=== PATIENT | female | born 1955 | race Caucasian/White ===

== ENCOUNTER → 2018-02-02 | Outpatient (CLI) | payer OTHER ==
[~2018-02-02] MED LIST: ALBU90OI61 INH; Adult Low Dose81 MG PO; BUDE10.22; BUDE6HFA; CARV6.25; CARV6.25 PO; FLUSAL1005 INH; LISI5 PO; LOVA40 PO; MECL25 PO; VITAMIN D31000 UNIT PO
== END | disposition home or self-care (01) ==
LOC: LAB SHORT 14:40 → LAB 14:40
PROVIDERS: Family Medicine
DX: Z12.4 Encounter for screening for malignant neoplasm of cervix (principal); Z11.51 Encounter for screening for human papillomavirus (HPV)
CPT/HCPCS: G0145

== ENCOUNTER 2020-07-24 11:45 | Day surgery (SDC) | payer OTHER ==
[~2020-07-24] VITALS: Ht 165.1 cm; Wt 81.7 kg
[~2020-07-24 11:45] MED LIST changes: +ATOR80; +ONDA4ODT MM; +Protonix40 MG PO
== END 2020-07-24 14:14 | disposition home or self-care (01) ==
LOC: ORSCSDS 11:45
PROVIDERS: Surgery
PROC: 0DJD8ZZ Inspection of Lower Intestinal Tract, Via Natural or Artificial Opening Endoscopic (ICD-10-PCS; principal; 2020-07-24 13:30)
DX: K92.1 Melena (principal); Z86.010 Personal history of colon polyps; Z83.71 Family history of colonic polyps; K57.30 Diverticulosis of large intestine without perforation or abscess without bleeding; K64.8 Other hemorrhoids; J45.909 Unspecified asthma, uncomplicated; I12.9 Hypertensive chronic kidney disease with stage 1 through stage 4 chronic kidney disease, or unspecified chronic kidney disease; E11.22 Type 2 diabetes mellitus with diabetic chronic kidney disease; N18.2 Chronic kidney disease, stage 2 (mild); Z79.82 Long term (current) use of aspirin; Z79.899 Other long term (current) drug therapy
CPT/HCPCS: 82947; J2704; J7120

== ENCOUNTER 2021-03-31 12:47 | Inpatient (IN) | payer OTHER ==
[~2021-03-31] VITALS: Ht 165.1 cm; Wt 89.4 kg
[~2021-03-31 12:47] MED LIST changes: +ASPIR 8181 MG PO; -ATOR80; +ATOR80 PO; -Adult Low Dose81 MG PO
[2021-03-31] MEDS ORDERED: IPRAT-ALBUT 0.5-3 ML INH (13:02)
[2021-03-31] MEDS ORDERED: KLOR-CON 1010 ME2 PO (13:03)
[2021-03-31] MEDS ORDERED: LISI5 PO (14:49)
[2021-03-31] MEDS ORDERED: CARVEDILOL12.5 MG PO (14:49)
[2021-03-31 15:14] LABS: BASOPHILS ABSOLUTE AUTO 0.02 K/mm3 (0.00-0.23); BASOPHILS PERCENT AUTO 0 % (0-2); EOSINOPHILS ABSOLUTE AUTO 0.01 K/mm3 (0.00-0.68); EOSINOPHILS PERCENT AUTO 0 % (0-6); Hematocrit 37.2 % (33.0-51.0); Hemoglobin 12.4 g/dL (11.5-16.0); IMMATURE GRAN ABSOLUTE AUTO 0.04 K/mm3 (0.00-0.10); IMMATURE GRAN PERCENT AUTO 0 % (0-1); LYMPHOCYTES ABSOLUTE AUTO 0.51 K/mm3 (0.84-5.20); LYMPHOCYTES PERCENT AUTO 5 % (21-46); MONOCYTES ABSOLUTE AUTO 0.48 K/mm3 (0.16-1.47); MONOCYTES PERCENT AUTO 5 % (4-13); Mean Corpuscular HGB 31.6 pg (26.0-34.0); Mean Corpuscular HGB Conc 33.3 g/dL (31.5-36.5); Mean Corpuscular Volume 95 fL (80-100); Mean Platelet Volume 10.1 fL (9.1-12.4); NEUTROPHILS ABSOLUTE AUTO 9.09 K/mm3 (1.96-9.15); NEUTROPHILS PERCENT AUTO 90 % (41-73); Platelet Count 149 K/mm3 (150-400); RDW Coefficient Variation 12.3 % (11.7-14.2); RDW Standard Deviation 43.1 fL (35.1-46.3); Red Blood Cell Count 3.92 M/mm3 (3.80-5.20); White Blood Cell Count 10.15 K/mm3 (4.00-11.30)
[2021-03-31 15:28] LABS: International Normalized Ratio 1.01; Prothrombin Time Results 10.9 Sec (9.7-11.5)
[2021-03-31 15:40] LABS: Albumin, Blood 3.8 g/dL (3.4-5.0); Albumin/Globulin Ratio 1.2 (0.8-1.8); Bilirubin, Total 0.9 mg/dL (0.1-1.0); Bun/Creatinine Ratio 22.2 (12.0-20.0); Calcium, Blood 9.2 mg/dL (8.5-10.1); Creatinine, Blood 1.17 mg/dL (0.40-1.00); Globulin, Blood 3.1 g/dL (2.2-4.0); Potassium, Blood 4.5 mmol/L (3.5-5.5); Total Protein, Blood 6.9 g/dL (6.4-8.2)
--- NOTE | 2021-03-31 16:26 | NUR ---
PT TO ROOM 217 AT 1615. PT A/O X4. ORIENTED TO ROOM AND CALL LIGHT. DR. SHABAZZ AT BEDSIDE.
--- NOTE | 2021-03-31 18:24 | NUR ---
PT HAS BEEN SEEN BY [facility] PROVIDER AND ORTHO PROVIDER. PLAN FOR SURGERY 04/01/21, WILL BE NPO AT MIDNIGHT. PT IS A/O X4. R HIP IS BRUISED. PT CAN WIGGLE TOES, HAS SENSATION, AND STRONG PEDAL PULSES. PT RESTING IN BED AT THIS TIME, CALL LIGHT IN REACH.
[2021-03-31 18:48] LABS: SARS-Cov-2 (COVID-19) PCR, MMC NEGATIVE (NEGATIVE)
--- NOTE | 2021-04-01 04:09 | NUR ---
A/OX4. VSS ON RA. PAIN MANAGED WELL W/ IV DILAUDID. DENIES SOB/CP. DENIES N/V. REPOSTIONS SELF IN BED. USING BED REY. USING CALL LIGHT TO MAKE NEEDS KNOWN.
[2021-04-01 05:11] LABS: BASOPHILS ABSOLUTE AUTO 0.01 K/mm3 (0.00-0.23); BASOPHILS PERCENT AUTO 0 % (0-2); EOSINOPHILS PERCENT AUTO 1 % (0-6); Hematocrit 34.1 % (33.0-51.0); Hemoglobin 11.2 g/dL (11.5-16.0); IMMATURE GRAN ABSOLUTE AUTO 0.06 K/mm3 (0.00-0.10); IMMATURE GRAN PERCENT AUTO 1 % (0-1); LYMPHOCYTES ABSOLUTE AUTO 0.72 K/mm3 (0.84-5.20); LYMPHOCYTES PERCENT AUTO 10 % (21-46); MONOCYTES ABSOLUTE AUTO 0.61 K/mm3 (0.16-1.47); MONOCYTES PERCENT AUTO 9 % (4-13); Mean Corpuscular HGB 31.1 pg (26.0-34.0); Mean Corpuscular HGB Conc 32.8 g/dL (31.5-36.5); Mean Corpuscular Volume 95 fL (80-100); Mean Platelet Volume 10.4 fL (9.1-12.4); NEUTROPHILS ABSOLUTE AUTO 5.46 K/mm3 (1.96-9.15); NEUTROPHILS PERCENT AUTO 79 % (41-73); Platelet Count 137 K/mm3 (150-400); RDW Coefficient Variation 12.5 % (11.7-14.2); RDW Standard Deviation 43.4 fL (35.1-46.3); White Blood Cell Count 6.96 K/mm3 (4.00-11.30)
[2021-04-01 05:29] LABS: Anion Gap 3 mmol/L (6-16); Blood Urea Nitrogen 24 mg/dL (8-24); Bun/Creatinine Ratio 27.1 (12.0-20.0); CO2, Blood 28 mmol/L (21-32); Calcium, Blood 8.4 mg/dL (8.5-10.1); Chloride, Blood 106 mmol/L (98-108); Creatinine, Blood 0.89 mg/dL (0.40-1.00); Glomerular Filtration Rate >60 (60-); Glucose, Blood 147 mg/dL (70-99); Magnesium, Blood 2.1 mg/dL (1.6-2.4); Potassium, Blood 4.4 mmol/L (3.5-5.5); Sodium, Blood 137 mmol/L (136-145)
--- NOTE | 2021-04-01 07:43 | NUR ---
PT CLAMMY AND WARM REPORTS NAUSEA NO EMESIS PO ZOFRAN GIVEN WITH SIP OF H20 PT STATED THIS JUST STARTED THIS MORNING
--- NOTE | 2021-04-01 08:54 | NUR ---
PT TRANSPORTED VIA BED TO DAY SURGERY
--- NOTE | 2021-04-01 09:02 | NUR ---
History, Chart, Medications and Allergies reviewed before start of procedure.Lungs clear T/O to Auscultation. Patient confirms NPO status and agrees with scheduled surgery. Patient States Post-Procedure ride home has been arranged. THE PATIENT WAS BROUGHT TO D/S FOR HER PROCEDURE.
--- NOTE | 2021-04-01 13:35 | NUR ---
pt arrived back to room 217 from pacu denies pain at this time and nausea cl given to start pt wanting to sleep pt has bulky dressing c/d/i
--- NOTE | 2021-04-01 15:13 | NUR ---
PT AWAKE TAKING IN CL REQ PAIN MEDS 2 TAB PO OXY GIVEN PT DECLINED TYLENOL AND TORADOL STATED DR CABRAL TOLD HER THAT SHE IS NOT TO TAKE IT STATED HER BOYFRIEND PUT IN A RAMP AT HER HOUSE
--- NOTE | 2021-04-01 15:40 | NUR ---
CARE COORDINATION REFERRAL - ADMIT: 03/31/21 DISCHARGE: DX: RIGHT FEMUR FRACTURE CC: KWILCOX FATIMAH CALL: PT AT HOME RESIDENCE: HOME CAREGIVER: SELF DX: CKD-STAGE 2, HTN, COPD, COLON CANCER, SEE LIST DME: NEBULIZER AND SUPPLIES CCM: NONE HOME HEALTH: NONE SUMMARY: ADMIT: 03/31/21 04/01/21- PT IS SCHEDULED FOR SURGERY TODAY. PLAN IS FOR THE PT TO STAY AT LEAST 1 NIGHT POST SURGERY. PER NURSE NOTE, PT HAS A RIDE HOME AFTER HER PROCEDURE. 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 IN HOSPITAL CHART, BROTHER PIEDAD BO IS LISTED NEXT OF KIN . -ARABELLAW
--- NOTE | 2021-04-01 17:50 | NUR ---
PT HAD SMALL EMESIS ZOFRAN 4 MG IV GIVEN WET WASHCLOTH PLACED TO FOREHEAD
--- NOTE | 2021-04-02 03:49 | NUR ---
URINARY RETENTION PT HAS NOT VOIDED SINCE ARRIVAL TO UNIT. BLADDER SCAN SHOWS 489ML. OFFERED T ASSIST GETTING OOB TO BSC, REFUSED. PLACED ON BEDPAN. SAFETY MEAURES IN PLACE. WILL CONTINUE TO MONITOR AND ADDRESS NEEDED.
[2021-04-02 04:07] LABS: BASOPHILS ABSOLUTE AUTO 0.01 K/mm3 (0.00-0.23); BASOPHILS PERCENT AUTO 0 % (0-2); EOSINOPHILS PERCENT AUTO 0 % (0-6); Hemoglobin 10.6 g/dL (11.5-16.0); IMMATURE GRAN ABSOLUTE AUTO 0.04 K/mm3 (0.00-0.10); IMMATURE GRAN PERCENT AUTO 0 % (0-1); LYMPHOCYTES ABSOLUTE AUTO 0.44 K/mm3 (0.84-5.20); LYMPHOCYTES PERCENT AUTO 4 % (21-46); MONOCYTES ABSOLUTE AUTO 0.58 K/mm3 (0.16-1.47); MONOCYTES PERCENT AUTO 6 % (4-13); Mean Corpuscular HGB 31.7 pg (26.0-34.0); Mean Corpuscular HGB Conc 33.1 g/dL (31.5-36.5); Mean Corpuscular Volume 96 fL (80-100); NEUTROPHILS ABSOLUTE AUTO 8.94 K/mm3 (1.96-9.15); NEUTROPHILS PERCENT AUTO 89 % (41-73); Platelet Count 142 K/mm3 (150-400); RDW Coefficient Variation 12.1 % (11.7-14.2); RDW Standard Deviation 42.7 fL (35.1-46.3); Red Blood Cell Count 3.34 M/mm3 (3.80-5.20); White Blood Cell Count 10.01 K/mm3 (4.00-11.30)
--- NOTE | 2021-04-02 04:21 | NUR ---
SHIFT SUMMARY LYING IN SEMI FOWLERS WITH EYES CLOSED, HAS RESTED WELL. VOIDED 450ML VIA BEDPAN AFTER BLADDER SCAN SHOWING 489ML. PERICARE COMPLETED AND PT RETURNED TO RESTING. RIGHT HIP GAUZE WITH FOAM TAPE IS C/D/I, DENEIS N/T. HAD DENIED PAIN OR N/V, BUT HAS BEEN DROWSY. WAKES TO VERBAL STIMULI. LEFT AC SL PIV IS PATENT, FLUSHING WITH EASE. POP'S/SCD'S TO BLE. NO FURTHER SIGNIFICANT CHANGES NOTED. DENIES PAIN, DISCOMFORT OR FURTHER NEEDS AT THIS TIME. SAFETY MEASURES IN PLACE. WILL CONTINUE TO MONITOR AND ADDRESS NEEDS THEY ARISE AND GIVE HAND OFF TO ONCOMING SHIFT USING SBAR.
[2021-04-02 04:26] LABS: Bun/Creatinine Ratio 27.1 (12.0-20.0); Calcium, Blood 8.3 mg/dL (8.5-10.1); Creatinine, Blood 1.07 mg/dL (0.40-1.00); Potassium, Blood 4.6 mmol/L (3.5-5.5)
--- NOTE | 2021-04-02 07:30 | NUR ---
recvd report from previous shift rn Bindu, pt sleepin in bed. bed in lowest position, call light within reach, bed rails up x 2
--- NOTE | 2021-04-02 09:30 | NUR ---
OT with patient
--- NOTE | 2021-04-02 10:35 | NUR ---
PT in with patient.
--- NOTE | 2021-04-02 13:15 | NUR ---
04/02/21- SPOKE WITH WILLIAM WITH [employer] [employer], SHE WILL GO AND TALK WITH THE PT ABOUT SERVICES. 04/02/21- PER CHART REVIEW WITH DR. WILLETT, PT IS STABLE TO D/C TODAY. MET WITH PT WHO REPORTS THAT PRIOR TO ARRIVING TO THE HOSPITAL THAT SHE WAS NOT INDEPENDENT, SHE HAD TO USE A WHEELCHAIR TO GET AROUND AFTER BREAKING HER LEG. PT HAS NOT HAD A CAREGIVER OR HOME HEALTH SERVICES. PT STATES THAT SHE LIVES WITH HER BROTHER, PIEDAD, IN A SINGLE STORY DWELLING. SHE FEELS COMFORTABLE RETURNING HOME. THEY HAVE RUNNING UTILITIES AND HER BOYFRIEND BUILT A RAMP FOR HER TO GET INTO THE HOME. PT STATES THAT HER BROTHER OR BOYFRIEND IS ABLE TO TAKE HER HOME AND HELP HEM MARKER MEDICATIONS. PT STATES THAT SHE NO LONGER DRIVES. HER PCP IS DR. ROBERTS, HER OLDEST DAUGHTER IS ARACELI AND SHE CONSIDERS HER NEXT OF KIN HER BROTHER, PIEDAD. PT STATES THAT SHE WOULD LIKE A WHEELCHAIR TO HELP GET AROUND HER HOME. DISCUSSED THAT WOULD TRY TO ORDER ONE BUT IF IT'S DECLINED, SHE IS AGREEABLE TO A 4-WHEELED WALKER. HE PT NOTE RECOMMENDS A FWW AND HOME HEALTH SERVICES. PT WOULD LIKE TO GO WITH [facility]ATEVER COMPANY CAN GET HER IN THE [place]. PT'S PHARMACY IS [facility]. -ARABELLAW
--- NOTE | 2021-04-02 14:03 | NUR ---
04/02/21 1403 Sahara Silva VERIFICATIONS: EDIT CHART.
--- NOTE | 2021-04-02 15:30 | NUR ---
pt provided with discharge instructions, printed education, aquacel dressing for change. peripheral IV removed WNL. pt states understanding of instructions. pt's transported her belongings on her lap via wheelchair to awaiting vehicle.
== END 2021-04-02 15:40 | disposition home or self-care (01) | DRG 522 ==
LOC: ER 12:47 → SURS 12:48
PROVIDERS: Emergency Medicine; Orthopaedic Surgery; ADMIT Internal Medicine
PROC: 3E0234Z Introduction of Serum, Toxoid and Vaccine into Muscle, Percutaneous Approach (ICD-10-PCS; 2021-04-01)
PROC: 0SRR0JZ Replacement of Right Hip Joint, Femoral Surface with Synthetic Substitute, Open Approach (ICD-10-PCS; principal; 2021-04-01 10:30)
DX: S72.001A Fracture of unspecified part of neck of right femur, initial encounter for closed fracture (principal); I12.9 Hypertensive chronic kidney disease with stage 1 through stage 4 chronic kidney disease, or unspecified chronic kidney disease; N18.30 Chronic kidney disease, stage 3 unspecified; Z20.822 Contact with and (suspected) exposure to COVID-19; Z23 Encounter for immunization; J44.9 Chronic obstructive pulmonary disease, unspecified; E78.5 Hyperlipidemia, unspecified; Z79.82 Long term (current) use of aspirin; Z88.0 Allergy status to penicillin; Z79.899 Other long term (current) drug therapy; Z86.010 Personal history of colon polyps; Z90.49 Acquired absence of other specified parts of digestive tract; Z98.51 Tubal ligation status; Z98.890 Other specified postprocedural states; W01.0XXA Fall on same level from slipping, tripping and stumbling without subsequent striking against object, initial encounter
CPT/HCPCS: 36415; 72170; 80048; 80053; 82947; 83735; 85025; 85610; 85730; 90670; 93005; 93010; 94640; 94760; 96374; 96376; 97110; 97116; 97162; 97166; 97530; 97535; 99285-25; A9270; C1776; G0378; J0171; J0735; J1100; J1170; J1650; J1885; J2250; J2405; J2704; J2795; J3010; J3370; J7120; U0004

== ENCOUNTER → 2021-04-30 | Outpatient (CLI) | payer OTHER ==
[~2021-04-30] MED LIST changes: +CARVEDILOL12.5 MG PO; +IPRAT-ALBUT 0.5-3 ML INH; +KLOR-CON 1010 ME2 PO
[2021-04-30 13:59] LABS: BASOPHILS ABSOLUTE AUTO 0.02 K/mm3 (0.00-0.23); BASOPHILS PERCENT AUTO 0 % (0-2); EOSINOPHILS ABSOLUTE AUTO 0.25 K/mm3 (0.00-0.68); EOSINOPHILS PERCENT AUTO 6 % (0-6); Hemoglobin 11.6 g/dL (11.5-16.0); IMMATURE GRAN ABSOLUTE AUTO 0.01 K/mm3 (0.00-0.10); IMMATURE GRAN PERCENT AUTO 0 % (0-1); LYMPHOCYTES ABSOLUTE AUTO 0.94 K/mm3 (0.84-5.20); LYMPHOCYTES PERCENT AUTO 21 % (21-46); MONOCYTES ABSOLUTE AUTO 0.26 K/mm3 (0.16-1.47); MONOCYTES PERCENT AUTO 6 % (4-13); Mean Corpuscular HGB 31.1 pg (26.0-34.0); Mean Corpuscular HGB Conc 32.2 g/dL (31.5-36.5); Mean Corpuscular Volume 97 fL (80-100); Mean Platelet Volume 10.2 fL (9.1-12.4); NEUTROPHILS PERCENT AUTO 67 % (41-73); Platelet Count 183 K/mm3 (150-400); RDW Coefficient Variation 13.1 % (11.7-14.2); RDW Standard Deviation 45.9 fL (35.1-46.3); Red Blood Cell Count 3.73 M/mm3 (3.80-5.20); White Blood Cell Count 4.48 K/mm3 (4.00-11.30)
== END | disposition home or self-care (01) ==
LOC: LAB SHORT 13:56
PROVIDERS: Family Medicine
DX: K92.1 Melena (principal)
CPT/HCPCS: 85025

== ENCOUNTER → 2021-09-17 | Outpatient (CLI) | payer OTHER ==
[2021-09-17 16:29] LABS: BASOPHILS ABSOLUTE AUTO 0.02 K/mm3 (0.00-0.23); BASOPHILS PERCENT AUTO 0 % (0-2); EOSINOPHILS ABSOLUTE AUTO 0.23 K/mm3 (0.00-0.68); EOSINOPHILS PERCENT AUTO 4 % (0-6); Hematocrit 37.4 % (33.0-51.0); Hemoglobin 12.5 g/dL (11.5-16.0); IMMATURE GRAN ABSOLUTE AUTO 0.02 K/mm3 (0.00-0.10); IMMATURE GRAN PERCENT AUTO 0 % (0-1); LYMPHOCYTES PERCENT AUTO 19 % (21-46); MONOCYTES ABSOLUTE AUTO 0.42 K/mm3 (0.16-1.47); MONOCYTES PERCENT AUTO 7 % (4-13); Mean Corpuscular HGB 31.3 pg (26.0-34.0); Mean Corpuscular HGB Conc 33.4 g/dL (31.5-36.5); Mean Corpuscular Volume 94 fL (80-100); Mean Platelet Volume 9.8 fL (9.1-12.4); NEUTROPHILS PERCENT AUTO 69 % (41-73); Platelet Count 186 K/mm3 (150-400); RDW Coefficient Variation 13.3 % (11.7-14.2); RDW Standard Deviation 45.3 fL (35.1-46.3); Red Blood Cell Count 3.99 M/mm3 (3.80-5.20); White Blood Cell Count 5.69 K/mm3 (4.00-11.30)
== END | disposition home or self-care (01) ==
LOC: LAB SHORT 16:24 → LAB 16:24
PROVIDERS: Physician Assistant
DX: K92.1 Melena (principal)
CPT/HCPCS: 85025

== ENCOUNTER → 2021-10-14 | Outpatient (CLI) | payer OTHER ==
[2021-10-16 10:31] LABS: Stool Occult Bld Immuno 1 Positive (NEGATIVE)
== END | disposition home or self-care (01) ==
LOC: LAB SHORT 17:06 → LAB 17:06 → LAB SHORT 10-15 17:06
PROVIDERS: Family Medicine
DX: Z12.11 Encounter for screening for malignant neoplasm of colon (principal)
CPT/HCPCS: G0328

== ENCOUNTER 2022-09-24 15:01 | Emergency (ER) | payer OTHER ==
[~2022-09-24] VITALS: Ht 165.1 cm; Wt 86.2 kg
[2022-09-24 17:11] LABS: Influenza A, PCR NEGATIVE (NEGATIVE); Influenza B, PCR NEGATIVE (NEGATIVE); Resp Syncytial Virus, PCR NEGATIVE (NEGATIVE)
[2022-09-24 17:12] LABS: SARS-Cov-2 (COVID-19) PCR, MMC POSITIVE (NEGATIVE)
== END 2022-09-24 18:58 | disposition home or self-care (01) ==
LOC: ER 15:01
PROVIDERS: Physician Assistant
DX: U07.1 COVID-19 (principal); J44.9 Chronic obstructive pulmonary disease, unspecified; E11.22 Type 2 diabetes mellitus with diabetic chronic kidney disease; N18.9 Chronic kidney disease, unspecified; I12.9 Hypertensive chronic kidney disease with stage 1 through stage 4 chronic kidney disease, or unspecified chronic kidney disease; Z79.82 Long term (current) use of aspirin; Z79.899 Other long term (current) drug therapy; Z88.0 Allergy status to penicillin
CPT/HCPCS: 0241U; 36415; J7030

== ENCOUNTER → 2024-07-06 | Outpatient (CLI) | payer OTHER ==
[2024-07-06 10:00] LABS: BASOPHILS ABSOLUTE AUTO 0.02 K/mm3 (0.00-0.23); BASOPHILS PERCENT AUTO 1 % (0-2); EOSINOPHILS ABSOLUTE AUTO 0.13 K/mm3 (0.00-0.68); EOSINOPHILS PERCENT AUTO 3 % (0-6); Hematocrit 38.3 % (33.0-51.0); Hemoglobin 12.8 g/dL (11.5-16.0); IMMATURE GRAN ABSOLUTE AUTO 0.02 K/mm3 (0.00-0.10); IMMATURE GRAN PERCENT AUTO 1 % (0-1); LYMPHOCYTES ABSOLUTE AUTO 0.94 K/mm3 (0.84-5.20); LYMPHOCYTES PERCENT AUTO 21 % (21-46); MONOCYTES ABSOLUTE AUTO 0.31 K/mm3 (0.16-1.47); MONOCYTES PERCENT AUTO 7 % (4-13); Mean Corpuscular HGB 32.3 pg (26.0-34.0); Mean Corpuscular HGB Conc 33.4 g/dL (31.5-36.5); Mean Corpuscular Volume 97 fL (80-100); Mean Platelet Volume 10.2 fL (9.1-12.4); NEUTROPHILS ABSOLUTE AUTO 3.01 K/mm3 (1.96-9.15); NEUTROPHILS PERCENT AUTO 68 % (41-73); Platelet Count 175 K/mm3 (150-400); RDW Coefficient Variation 12.5 % (11.7-14.2); RDW Standard Deviation 44.2 fL (35.1-46.3); Red Blood Cell Count 3.96 M/mm3 (3.80-5.20); White Blood Cell Count 4.43 K/mm3 (4.00-11.30)
[2024-07-06 10:25] LABS: Albumin, Blood 3.8 g/dL (3.4-5.0); Albumin/Globulin Ratio 1.2 (0.8-1.8); Bilirubin, Total 0.5 mg/dL (0.1-1.0); Bun/Creatinine Ratio 24.3 (12.0-20.0); Calcium, Blood 9.2 mg/dL (8.5-10.1); Creatinine, Blood 1.11 mg/dL (0.40-1.00); Globulin, Blood 3.1 g/dL (2.2-4.0); Potassium, Blood 4.7 mmol/L (3.5-5.5); Total Protein, Blood 6.9 g/dL (6.4-8.2)
== END | disposition home or self-care (01) ==
LOC: LAB 09:54 → LAB SHORT 09:54
PROVIDERS: Chiropractor
DX: K62.5 Hemorrhage of anus and rectum (principal)
CPT/HCPCS: 80053; 85025